=== PATIENT | female | born 1975 | race Caucasian/White ===

== ENCOUNTER 2020-06-02 11:44 | Emergency (ER) | payer BC ==
[2020-06-02 13:42] LABS: HEMOGLOBIN 13.5 gm/dl (12.3-15.3); RED BLOOD COUNT 4.83 M/UL (4.00-5.10); WHITE BLOOD COUNT 12.8 K/UL (4.5-11.0)
[2020-06-02 14:05] LABS: BUN/CREATININE RATIO 18 (0-10)
== END 2020-06-02 18:20 | disposition home or self-care (01) ==
LOC: ER1 11:44
PROVIDERS: Physician Assistant Medical
DX: U07.1 COVID-19 (principal); J98.11 Atelectasis; I10 Essential (primary) hypertension; J45.909 Unspecified asthma, uncomplicated; E11.9 Type 2 diabetes mellitus without complications
CPT/HCPCS: 71045; 80053; 85025; 99283; M0239

== ENCOUNTER → 2020-08-16 | Outpatient (CLI) | payer BC, OTHER | LOC: HEART 5 11:07 | DX: J45.20 Mild intermittent asthma, uncomplicated (principal) | CPT/HCPCS: 94010 ==